=== PATIENT | female | born 1985 | race Caucasian/White ===

== ENCOUNTER 2019-12-29 17:34 | Emergency (ER) | payer OTHER, SELFPAY ==
[2019-12-29 17:44] VITALS: BP 132/92; PULSE 82; RESP 18; TEMP 37.2; O2SAT 100; BMI 36.6
[2019-12-29 18:16] VITALS: BP 138/89; PULSE 88; RESP 16; TEMP 37.1; O2SAT 100
--- NOTE | 2019-12-29 18:33 | PC.NURSE ---
Pt reports mechanical fall yesterday afternoon, +loc w/ <5 seconds. Reports n/v, r temporal headache described as throbbing, dizziness. Pt denies visual disturbances, neuros intact. awaiting primary eval.
[2019-12-29] MEDS: Acetaminophen 325 MG TABLET 650 MG PO (18:37)
--- NOTE | 2019-12-29 19:04 | CT_ITS ---
EXAMINATION: CT HEAD WITHOUT CONTRAST CT FACIAL BONES WITHOUT CONTRAST CT CERVICAL SPINE WITHOUT CONTRAST CLINICAL INFORMATION: Fall. COMPARISON: None available. TECHNIQUE: Imaging was performed from the skull base to vertex without intravenous administration of contrast. In addition, helical noncontrast CT imaging was acquired through the cervical spine and facial bones and source images were reviewed along with axial reconstructions and sagittal and coronal MPRs. DLP: 1781 mGy-cm This CT examination was performed using dose optimization techniques as appropriate, variously including the following: *Automated exposure control. *Adjustment of mA and/or kV according to patient size (this includes techniques or standardized protocols for targeted exams where dose is matched to indication/reason for exam; i.e. extremities or head). *Use of iterative reconstruction technique. FINDINGS: Head: There is no evidence of acute intracranial hemorrhage or edematous territorial infarction. There is no abnormal attenuation within the brain parenchyma. Franco-white matter differentiation is preserved. The ventricles are normal in size and configuration. No evidence for obstructive hydrocephalus. No abnormal mass effect or midline shift. No extra-axial fluid collections. Mild soft tissue edema along the right supraorbital ridge. No associated osseous abnormalities. The mastoid air cells and middle ear cavities remain well aerated. Maxillofacial Bones: No evidence of maxillofacial bone fractures. The zygomatic arches remain intact. No nasal bone fracture. The nasal septum remains midline. No evidence of mandibular or maxillary fracture. The mandibular condyles remain well-seated in their respective temporal articular grooves. Normal appearance of the intraconal and extraconal fat. No evidence of traumatic injury to the extraocular musculature or globes. The paranasal sinuses and mastoid air cells remain well aerated. Rightward nasal septal deviation. Bilateral conchal bullosa. No layering fluid collections. Cervical Spine: The atlantooccipital and atlantoaxial articulations remain well aligned. Mild reversal the normal cervical lordosis centered on C5. Otherwise, there is anatomic alignment of the vertebral bodies and posterior elements. No evidence of acute fracture or subluxation. The vertebral body heights and disc spaces are maintained. There is no prevertebral soft tissue swelling. The thyroid gland and remaining cervical soft tissues are normal in appearance. The lung apices demonstrate no abnormalities. IMPRESSION: 1. No evidence of acute intracranial hemorrhage or edematous territorial infarction. 2. No evidence of acute fracture or traumatic subluxation of the cervical spine. 3. Mild soft tissue edema along the right supraorbital ridge. No associated osseous abnormalities. No evidence of acute fracture of the maxillofacial bones.
--- NOTE | 2019-12-29 19:09 | ED_ITS ---
HPI - Head Injury General Chief complaint: Head Injury Stated complaint: head injury Time Seen by Provider: 12/29/19 19:30 Source: patient Mode of arrival: ambulatory Limitations: no limitations History of Present Illness HPI Narrative: patient fell yesterday at home. Patient states he tripped over a cord and hit her head on the edge of the wall. Patient states he lost consciousness for about 5 seconds. Patient states since trauma happened yesterday she has had nausea and slight dizziness. Patient denies any abdominal pain, rectal bleeding, bleeding from ears, chest pain, or shortness of breath. Patient denies any pain in extremities MD Complaint: head injury Other Injuries: none Related Data Previous Rx's Medication Instructions Recorded naproxen 500 mg PO BID PRN #20 tab 12/29/19 Allergies Allergy/AdvReac Type Severity Reaction Status Date / Time No Known Allergies Allergy Unverified 11/27/19 18:58 [No Known Allergies*] Review of Systems Review of Systems: Headache, and nausea since fall Constitutional: Constitutional: Reports as per HPI and Reports no additional constitutional complaints Eyes: Eyes: Reports as per HPI and Reports no additional eye complaints ENT: Reports system reviewed and no additional complaints, except as documented and Reports as per HPI Cardiovascular: Cardiovascular: Reports as per HPI and Reports no additional cardiovascular complaints Respiratory: Respiratory: Reports as per HPI and Reports no additional respiratory complaints Gastrointestinal: Gastrointestinal: Reports as per HPI and Reports no additional gastrointestinal complaints Neurologic: Reports system reviewed and no additional complaints, except as documented and Reports as per HPI Psychiatric: Psychiatric: Reports no additional psychiatric complaints and Reports as per HPI [facility] Social History Social History Alcohol intake: never Smoking Status: Never smoker Use of substances other than those prescribed or required for medical reasons: No Advance Directives: No Advance Directives Information Provided: Yes Physical Exam Vital Signs: Vital Signs: Vital Signs Temp Pulse Resp BP Pulse Ox 12/29/19 18:16 98.7 F 88 16 138/89 100 12/29/19 17:44 98.9 F 82 18 132/92 H 100 Body Mass Index 36.6 Const: General: cooperative, healthy appearing, comfortable, no acute distress and well developed Orientation/consciousness: oriented to person, oriented to place, oriented to time and patient oriented x3 HENMT: Other: Positive for right frontal bone tenderness on palpation. Head: Yes normal to inspection, Yes No palpable skull fracture present, No Vega's sign, No hematoma, No laceration, No occipital foramen tenderness, No palpable skull fracture, No raccoon eyes, No scalp lesion, No scalp tenderness and No periorbital ecchymosis Ears: hearing grossly normal bilaterally Face and sinus: Yes normal facial exam Mouth: Normal oral and palatal mucosa present, lip normal and tongue normal Eyes: General: appearance normal, both eyes and all related structures Neck: Neck: Yes normal visual inspection, Yes full ROM, Yes no lymphadenopathy, Yes no meningeal signs, No anterior neck swelling and No tender Chest: Chest palpation & inspection: normal inspection of the chest, normal palpation of entire chest wall and no localized rib tenderness Resp: Effort & Inspection: normal respiratory effort, able to speak in com plete sentences, no audible wheezes, no cough, no grunting and no retractions Auscultation: no crackles, no rales, no rhonchi, no wheezes and breath sounds present Cardio: Jugular venous distension: no JVD Heart sounds: S1 normal heart sound present and S2 normal heart sound present GI: Inspection: Yes normal to inspection and No abdominal wall ecchymosis Palpation (GI): Soft to palpation, not firm, nontender, no guarding and not rigid Percussion: Yes normal to percussion Auscultation: normal bowel sounds : General: No CVA tenderness and Yes no CVA tenderness Back/Spine/Pelvis: Back: no CVA tenderness, No CVA tenderness and No back tenderness Skin: General skin exam: no rashes or lesions noted Neuro: General: oriented to person, oriented to place, oriented to time, patient oriented x3, gait normal, no meningeal signs and CN's II-XI intact bilaterally Cranial nerves: Yes CN's II-XII intact bilaterally Extrem: General: Yes normal to inspection and Yes full ROM Right upper extremity: normal to inspection Left upper extremity: normal to inspection Right lower extremity: normal to inspection Left lower extremity: normal to inspection Psych: Appearance: grossly normal, well kempt and not disheveled Course Course Course Narrative: history physical exam indicate concussion. Patient will be sent for head CT, C-spine, facial CT to rule out any fracture or bleeds. Patient given Reglan. urine was ordered, but patient states she does not need to give urine because she is not . Patient states she is on Depo shot and is not sexually active since october Reevaluation(s) Reevaluation #1: Patient head CT, C-spine, and facial CT negative for any fractures or brain bleed. Patient will be discharged with naproxen. Diagnosis concussion. Time: 20:08 MDM - Head Injury MDM Narrative Medical decision making narrative: Concussion Differential Diagnosis Differential diagnosis: Likely concussion with loss of consciousness Discharge Plan Discharge Clinical Impression: Concussion with loss of consciousness Patient Disposition: Elopement Instructions: Concussion (ED) Additional Instructions: return to the ED for loss of vision, change in vision, severe headache, intractable nausea /vomiting, rectal bleeding, vomiting blood, back pain, neck stiffness, or any other concerning symptoms. Please follow-up with the PCP. Prescriptions: New naproxen 500 mg tablet 500 mg PO BID PRN (Reason: pain) Qty: 20 RF: 0 Referrals: Katty Alfonso, [facility] [Primary Care Provider] - 2 days (Concussion due to fall. Head CT/Facial CT/Cpsine are normal) Print Language: Korean
[2019-12-29] MEDS: Metoclopramide HCl 10 MG TABLET PO (19:48)
--- NOTE | 2019-12-29 19:48 | PC.NURSE ---
patient medicated for nausea per order, per provider hold tylenol as patient previously had tylenol given 2 hrs ago.
[2019-12-29] MEDS: Ketorolac Tromethamine 30 MG/ML VIAL IM (20:44)
--- NOTE | 2019-12-29 21:24 | PC.NURSE ---
Pt declining to give urine sample, reports its impossible . pt reports relief from nausea.
[2019-12-29 21:26] VITALS: BP 121/88; PULSE 82; RESP 16; TEMP 36.6; O2SAT 99
== END 2019-12-29 21:29 | disposition left against medical advice (07) ==
PROVIDERS: Emergency Provider Emergency Medicine; PCP Nurse Practitioner Adult Health
DX: S06.0X1A Concussion with loss of consciousness of 30 minutes or less, initial encounter (principal); G44.309 Post-traumatic headache, unspecified, not intractable; M54.2 Cervicalgia; W01.10XA Fall on same level from slipping, tripping and stumbling with subsequent striking against unspecified object, initial encounter; Y93.01 Activity, walking, marching and hiking; Y92.009 Unspecified place in unspecified non-institutional (private) residence as the place of occurrence of the external cause
CPT/HCPCS: 70450; 70486; 72125; 96372; 99284; J1885